=== PATIENT | female | born 1975 | race Caucasian/White ===

== ENCOUNTER 2016-12-14 12:06 | Emergency (ER) | payer BC ==
[~2016-12-14] VITALS: Ht 154.9 cm; Wt 67.3 kg
[2016-12-14 12:08] VITALS: BP 145/79
--- NOTE | 2016-12-14 12:17 | NUR ---
Patient to bed 08.
[2016-12-14 12:30] LABS: APPEARANCE,URINE CLEAR (CLEAR); BILIRUBIN,URINE NEGATIVE (NEGATIVE); BLOOD, URINE NEGATIVE (NEGATIVE); COLOR,URINE YELLOW (YELLOW); LEUKOCYTE ESTERASE ,URINE TRACE (NEGATIVE); NITRITE, URINE NEGATIVE (NEGATIVE); PROTEIN,URINE NEGATIVE (NEGATIVE); UGLUCOSE NEGATIVE (NEGATIVE); UROBILINOGEN,URINE 0.2 EU/dL (0.2 - 1)
--- NOTE | 2016-12-14 12:30 | NUR ---
41/F c/o mid upper back pain since yesterday. Pt states after brushing her teeth yesterday and had a x1 episode of vomiting. Denies N/V today. Pt describes pain as tightness, non radiating, intermittent 12/30. 13 weeks . G-4 P-2 A-1. Denies fever or chills. Denies s/s of UTI. Denies vaginal bleeding or abdominal cramping. Denies medical hx. AOX4, guatem[place] speaking. VSS.
--- NOTE | 2016-12-14 12:32 | NUR ---
Dr. Kirby evaluating patient at bedside.
--- NOTE | 2016-12-14 12:38 | NUR ---
Shraddha carl in [facility] - 12/14/16 at 1240 by [facility] Patient being evaluated by physician at bedside.
[2016-12-14] MEDS ORDERED: ACETAMINOPHEN EXTRA STRENGTH 500 MG TAB PO ONE (12:40)
[2016-12-14 12:48] LABS: BACTERIA,URINE None Seen /HPF (None Seen); RBC,URINE NONE SEEN /HPF (0-5); SQUAMOUS EPITHELIAL CELL,UR 0-3 (FEW) /LPF (0-3 (FEW)); WBC,URINE 0-5 (RARE) /HPF (0-5)
--- NOTE | 2016-12-14 12:51 | NUR ---
L&D nurse at bedside.
[2016-12-14 13:12] VITALS: BP 145/79
--- NOTE | 2016-12-14 13:13 | NUR ---
Patient discharged with v/s stable. Written and verbal after care instructions given and explained. Patient verbalized understanding. Ambulatory with steady gait. All questions addressed prior to discharge. Advised to follow up with PMD. work excuse handed to pt as well.
== END 2016-12-14 13:07 | disposition home or self-care (01) ==
LOC: MED 12:06
DX: O26.891 Other specified pregnancy related conditions, first trimester (principal); M54.9 Dorsalgia, unspecified; Z3A.13 13 weeks gestation of pregnancy
CPT/HCPCS: 81001; 81025; 99283

== ENCOUNTER 2016-12-15 14:42 | Emergency (ER) | payer BC ==
[~2016-12-15] VITALS: Ht 154.9 cm; Wt 66.2 kg
[2016-12-15 14:49] VITALS: BP 131/78
--- NOTE | 2016-12-15 15:43 | NUR ---
Patient taken to XRAY via wheelchair per tech--from lobby.
--- NOTE | 2016-12-15 15:50 | NUR ---
Patient back from XRAY via wheelchair per tech--to lobby.
[2016-12-15 16:25] LABS: APPEARANCE,URINE HAZY (CLEAR); BILIRUBIN,URINE NEGATIVE (NEGATIVE); BLOOD, URINE NEGATIVE (NEGATIVE); COLOR,URINE YELLOW (YELLOW); LEUKOCYTE ESTERASE ,URINE TRACE (NEGATIVE); NITRITE, URINE NEGATIVE (NEGATIVE); PH,URINE 7.5 (5.0-9.0); PROTEIN,URINE NEGATIVE (NEGATIVE); UGLUCOSE NEGATIVE (NEGATIVE)
[2016-12-15 16:39] LABS: RBC,URINE 0-5 /HPF (0-5); WBC,URINE 0-5 /HPF (0-5)
[2016-12-15 16:40] LABS: BACTERIA,URINE FEW /HPF (None Seen); CALCIUM OXALATE CRYSTALS,UR 0-10 /HPF (None Seen); URINE AMORPHOUS PHOSPHATES 3+ /HPF (None Seen)
--- NOTE | 2016-12-15 17:13 | NUR ---
Patient ambulated to bed 04.
--- NOTE | 2016-12-15 17:14 | NUR ---
41F BIB SELF C/O UPPER BACK PAIN X 2 DAYS. PT STATES 13 WEEKS PREGANT. DENIES N/V/D; SKIN IS PINK/WARM/DRY; AAOX4 WITH EVEN AND STEADY GAIT; LUNGS CLEAR BL; HR EVEN AND REGULAR; PT DENIES ANY FEVER, CP, SOB, OR COUGH AT THIS TIME; PATIENT STATES PAIN OF 8/10 AT THIS TIME; VSS; PATIENT POSITIONED FOR COMFORT; HOB ELEVATED; BEDRAILS UP X2; BED DOWN. ER MD MADE AWARE OF PT STATUS.
--- NOTE | 2016-12-15 17:33 | NUR ---
LAB AT BEDSIDE.
--- NOTE | 2016-12-15 18:02 | NUR ---
PAIN 5/10. PT STS DOEN'T WANT PAIN MED AT THIS TIME.
--- NOTE | 2016-12-15 18:04 | NUR ---
Patient appears to be resting comfortably in bed. Vital Signs within normal limits. Respirations even and unlabored.WILL CONTINUE TO MONITOR.
--- NOTE | 2016-12-15 18:10 | NUR ---
ER MD DR BARNES EVALUATING PT AT BEDSIDE.
[2016-12-15 18:27] VITALS: BP 106/70
--- NOTE | 2016-12-15 18:27 | NUR ---
Patient discharged with v/s stable. Written and verbal after care instructions given and explained. Patient alert, oriented and verbalized understanding of instructions. Ambulatory with steady gait. All questions addressed prior to discharge. ID band removed. Patient advised to follow up with PMD. Rx of BENADRYL & NORCO given. Patient educated on indication of medication including possible reaction and side effects. Opportunity to ask questions provided and answered.
== END 2016-12-15 18:27 | disposition home or self-care (01) ==
LOC: MED 14:42
DX: O26.891 Other specified pregnancy related conditions, first trimester (principal); M54.9 Dorsalgia, unspecified; Z3A.13 13 weeks gestation of pregnancy
CPT/HCPCS: 81001; 81025; 99283

== ENCOUNTER 2017-03-17 05:12 | Observation (INO) | payer BC ==
[~2017-03-17] VITALS: Ht 152.4 cm; Wt 70.3 kg
[2017-03-17] MEDS ORDERED: OSC500 PO (05:43)
[2017-03-17] MEDS ORDERED: PREN-380 PO (05:43)
[2017-03-17] MEDS ORDERED: LACTATED RINGERS 1,000 ML IV SCH (05:50)
[2017-03-17] MEDS ORDERED: NIFEdipine 10 MG CAPLF PO SCH (06:05)
[2017-03-17] MEDS ORDERED: BETAMETH ACET/BETAMETH NA PH 30 MG/5 ML VIAL IM SCH (06:05)
[2017-03-17] MEDS ORDERED: BETAMETH ACET/BETAMETH NA PH 30 MG/5 ML VIAL IM ONE (06:15)
[2017-03-17] MEDS ORDERED: NIFEdipine 10 MG CAPLF ONE ×2 (06:15→07:01)
[2017-03-17] MEDS ORDERED: AMPICILLIN 2,000 MG in NACL 0.9% 100 ML IV SCH ×2 (06:50→12:00)
[2017-03-17] MEDS ORDERED: AMPICILLIN 2,000 MG VIAL ONE (07:08)
[2017-03-17 07:12] VITALS: BP 123/73
[2017-03-17 07:42] LABS: HEMOGLOBIN 13.3 g/dL (12.0-16.0); MEAN CORPUSCULAR HEMOGLOBIN 28 pg (27-31); MEAN CORPUSCULAR HGB CONC 33 g/dL (33-37); MEAN CORPUSCULAR VOLUME 83 fL (80-94); PLATELET COUNT (AUTO) 220 K/uL (140-450); RED BLOOD CELL COUNT(AUTO) 4.84 MIL/uL (4.20-5.40); RED CELL DISTRIBUTION WIDTH 12.4 % (11.6-13.7)
[2017-03-17 07:54] LABS: ANION GAP 12.2 (8-16); CARBON DIOXIDE 21.3 mmol/L (21-32); CREATININE 0.5 mg/dL (0.6-1.3); LYMPHOCYTES % (MANUAL) 10 % (20-46); MONOCYTES % (MANUAL) 2 % (5-12); POTASSIUM 3.5 mmol/L (3.5-5.1)
[2017-03-17 07:59] LABS: ALBUMIN 2.7 g/dL (3.4-5.0); TOTAL BILIRUBIN 0.5 mg/dL (0.0-1.0)
--- NOTE | 2017-03-17 09:41 | NUR ---
PATIENT HAS BEEN SCREENED AND CATEGORIZED LOW NUTRITION RISK. PATIENT WILL BE SEEN WITHIN 7 DAYS OF ADMISSION. 03/23/[address]
== END 2017-03-17 11:32 | disposition home or self-care (01) ==
LOC: MLD 05:12
PROVIDERS: ADMIT Obstetrics & Gynecology; ATTEND Obstetrics & Gynecology
DX: O26.892 Other specified pregnancy related conditions, second trimester (principal); R10.30 Lower abdominal pain, unspecified; Z3A.27 27 weeks gestation of pregnancy
CPT/HCPCS: 36415; 76805; 80053; 85025; 86140; 96360; 96361; 96372; G0378; J0290; J0702; J7120; Q0092